=== PATIENT | female | born 1985 | race Caucasian/White ===

== ENCOUNTER 2016-10-20 17:17 | Emergency (ER) | payer OTHER, MEDICAID ==
[~2016-10-20] VITALS: Ht 160 cm; Wt 85.0 kg
[~2016-10-20 17:17] MED LIST: MULT1TAB46
[2016-10-20 17:21] VITALS: BP 130/76; PULSE 63; RESP 15; TEMP 98.2; O2SAT 98
--- NOTE | 2016-10-20 17:52 | PD ---
HPI Chief Complaint: Injury Time Seen by Provider: 17:51 Travel History International Travel<30 days: No Contact w/Intl Traveler<30days: No Traveled to known affect area: No History of Present Illness HPI 31-year-old female who is hearing impaired complaining of left wrist pain since last Tuesday. A professional staff interpreter was used for interpretation. Patient 's wrist pain has been since last Tuesday after working. She denies injury. 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 The pain started on Tuesday after work and has progressively gotten worse. She has iced it and taken Tylenol and ibuprofen taking that would've gotten better but it has not. She has also used a wrist brace with no relief of symptoms. Doesn't know anything that makes it better. Pain is worse with movement and palpation. She says the pain feels tight and feels this is a tendon is cramping up in the wrist and back of the hand area. She denies paresthesias, loss of sensation to the affected extremity. Reports decreased range of motion at the wrist and fingers secondary to pain. Denies fever, vomiting. Allergies to Augmentin, Ceclor, Pediazole, sulfa. No other medical complaints. No other modifying factors or associated signs and symptoms. PFSH Past Medical History Cancer: No Cardiovascular Problems: No Diabetes: No Endocrine: No Genitourinary: No Hepatitis: No Hiatal Hernia: No Immune Disorder: No Musculoskeletal: Yes (arthritis right hand) Neurologic: Yes (as a child had a concussion from a trampoline accident no residual) Psychiatric: No Reproductive: Yes Respiratory: Yes (rarely sternous activity induced asthma) Thyroid Disease: No ?: Unknown LMP: 09/27/16 Past Surgical History AICD: No Gynecologic Surgery: Yes (laparascopy hysteroscopy) Joint Replacement: No Pacemaker: No Social History Tobacco Use: No Substance Use: No Allergies-Medications (Allergen,Severity, Reaction): Coded Allergies: Ceclor (Unverified Allergy, Severe, nausea and vomiting, 10/20/16) Pediazole (Unverified Allergy, Severe, rash nauesea,vomiting, 10/20/16) Augmentin (Unverified Allergy, Intermediate, unknown, 10/20/16) Sulfa (Unverified Allergy, Intermediate, unknown reaction , 10/20/16) Reported Meds & Prescriptions Reported Meds & Active Scripts Active Naproxen 500 Mg Tab 500 Mg PO BID PRN Reported Multi Vitamin Daily (Multiple Vitamin) 1 Tab Tab BID Review of Systems Except as stated in HPI: all other systems reviewed are Neg Physical Exam Narrative GENERAL: Well-nourished, well-developed female patient, in no acute distress; deaf SKIN: Warm and dry. HEAD: Atraumatic. Normocephalic. EYES: Pupils equal and round. No scleral icterus. No injection or drainage. ENT: Mucosa pink and moist. Airway patent. NECK: Trachea midline. CARDIOVASCULAR: Regular rate. RESPIRATORY: No accessory muscle use. GASTROINTESTINAL: Rounded. MUSCULOSKELETAL: Left wrist and hand are without erythema, edema, ecchymosis; no obvious deformity; full range of motion at the wrist and fingers; decreased gill box fixer strength; sensory intact. Left upper extremity is supple and non-tense with 2+ radial pulse and sensory intact without erythema or edema. No obvious deformities. No clubbing. No cyanosis. NEUROLOGICAL: Awake and alert. Oriented 3. No obvious cranial nerve deficits. Motor grossly within normal limits. Normal speech. PSYCHIATRIC: Appropriate mood and affect; insight and judgment normal. Data Data Last Documented VS Vital Signs Date Time Temp Pulse Resp B/P Pulse Ox O2 Delivery O2 Flow Rate FiO2 10/20/16 17:21 98.2 63 15 130/76 98 Orders Wrist, Complete ([id number]) (10/20/16 17:52) Ibuprofen (Motrin) (10/20/16 18:00) Splint Or Brace Apply/Monitor (10/20/16 18:37) MDM Medical Decision Making Medical Screen Exam Complete: Yes Emergency Medical Condition: Yes Medical Record Reviewed: Yes Differential Diagnosis Wrist sprain, carpal tunnel syndrome, wrist pain Narrative Course Patient is deaf and a professional staff interpreter was used for interpretation. 31- year-old female with left wrist pain since last Tuesday. Denies injury. Ibuprofen administered in the ER. Left wrist x-ray ordered. 1840: Left wrist x-ray with no acute findings. Responds provider for support. Naproxen prescribed for home. Instructed patient to follow up with hand if symptoms persist. Discussed carpal tunnel syndrome. Patient verbalizes understanding and agreement with treatment plan. Patient is medically cleared and stable for discharge. Discussed reasons to return to the emergency department. Instructed patient to follow up with primary care provider. Patient agrees with treatment plan. The patients vital signs are stable and the patient is stable for outpatient follow-up and treatment. Patient discharged home, stable and in no acute distress. Diagnosis Primary Impression: Wrist pain, left Referrals: Hand Surgeon Primary Care Physician Patient Instructions: Carpal Tunnel Syndrome (ED), General Instructions Departure Forms: Tests/Procedures, Work Release Enter return to work date: Oct 22, 2016 Additional Instructions: Wrist splint for support; can use at night while sleeping Avoid sleeping on your hands to help ease pain and numbness in your wrist and hand Rotate your wrist and stretch your palms and fingers Take a pain reliever, such as Advil, Motrin, ibuprofen, Aleve as needed and as directed Follow-up with primary care provider Follow-up with hand surgeon as needed Return to the emergency department immediately with worsening of symptoms Med/Other Pt SpecificInfo: Prescription(s) given Scripts Naproxen 500 Mg [id number] Mg PO BID PRN (PAIN SCALE 1 TO 10) #20 TAB Ref 0 Prov:Magaly Blackwood 10/20/16 Disposition: 01 DISCHARGE HOME Condition: Stable Magaly Blackwood Oct 20, 2016 17:51
[2016-10-20] MEDS ORDERED: NAPR500T PO (18:00)
[2016-10-20] MEDS ORDERED: IBUPROFEN 800 MG TAB PO ONE (18:00)
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
== END 2016-10-20 18:57 | disposition home or self-care (01) ==
LOC: NEPK 17:17
DX: M25.532 Pain in left wrist (principal)
CPT/HCPCS: 73110; 99283; L3908

== ENCOUNTER 2016-11-07 07:48 | Emergency (ER) | payer OTHER, MEDICAID ==
[~2016-11-07 07:48] MED LIST changes: +NAPR500T PO
[2016-11-07 07:50] VITALS: BP 133/77; PULSE 80; RESP 14; TEMP 98.2; O2SAT 99
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
[2016-11-07] MEDS ORDERED: METF500T PO (08:19)
[2016-11-07] MEDS ORDERED: ATOR40TA16 PO (08:20)
[2016-11-07] MEDS ORDERED: MORPHINE SULFATE 8 MG/ML INJ IM ONE (08:30)
[2016-11-07] MEDS ORDERED: KETOROLAC TROMETHAMINE 60 MG/2 ML (IM) VIAL IM ONE (08:30)
[2016-11-07] MEDS ORDERED: ORPHENADRINE INJ 60 MG/2 ML AMP IM ONE (08:30)
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
[2016-11-07 09:14] LABS: BLOOD, URINE NEG (NEG); GLUCOSE,URINE NEG (NEG); KETONE, URINE NEG (NEG); NITRITE,URINE NEG (NEG); URINE COLOR LIGHT-YELLOW (YELLW/STRAW)
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
[2016-11-07 09:22] LABS: COMMENT (UR) CULT NOT INDICATED; CULTURE IF INDICATED CULT NOT INDICATED
[2016-11-07] MEDS ORDERED: CYCL5TAB PO (10:05)
[2016-11-07] MEDS ORDERED: IBUP-232 PO (10:05)
[2016-11-07 10:38] VITALS: BP 128/74; PULSE 75; RESP 18; O2SAT 99
== END 2016-11-07 11:04 | disposition home or self-care (01) ==
LOC: NEPE 07:48
DX: S16.1XXA Strain of muscle, fascia and tendon at neck level, initial encounter (principal); S39.012A Strain of muscle, fascia and tendon of lower back, initial encounter; V43.52XA Car driver injured in collision with other type car in traffic accident, initial encounter; Y93.89 Activity, other specified; Y92.410 Unspecified street and highway as the place of occurrence of the external cause; Y99.8 Other external cause status
CPT/HCPCS: 72050; 72072; 72110; 73502; 81001; 84703; 96372; 99283; J1885; J2270; J2360